=== PATIENT | female | born 1975 | race Caucasian/White ===

== ENCOUNTER 2018-11-29 19:17 | Emergency (ER) | payer MEDICAID ==
[~2018-11-29] VITALS: Ht 175.3 cm; Wt 68.0 kg
[~2018-11-29 19:17] MED LIST: ZYPREXA5 MG ORAL
[2018-11-29 19:20] VITALS: BP 142/76
[2018-11-29 19:47] LABS: BASOPHILS % (AUTO) 0.8 % (0.0-2.0); EOSINOPHILS % (AUTO) 1.3 % (0.0-3.0); HEMATOCRIT 42.4 % (37.0-47.0); HEMOGLOBIN 13.7 G/DL (12.0-16.0); LYMPHOCYTES % (AUTO) 21.1 % (20.0-45.0); MEAN CORPUSCULAR VOLUME 92 FL (80-99); MONOCYTES % (AUTO) 6.8 % (1.0-10.0); NEUTROPHILS % (AUTO) 70.1 % (45.0-75.0); PLATELET COUNT 331 K/UL (150-450); RED BLOOD COUNT 4.59 M/UL (4.20-5.40); RED CELL DISTRIBUTION WIDTH 12.5 % (11.6-14.8)
--- NOTE | 2018-11-29 19:48 | Emergency Room Report ---
History of Present Illness General Chief Complaint: Behavioral Complaint Source: Patient (Abe Jones) Present Illness HPI 43-year-old female patient presents the ER brought in by ambulance from [facility] for hearing voices and thoughts of self-harm. Patient reports thoughts of hurting herself at this time. States that she would slit her wrists. Denies fever, chest pain or shortness of breath, abdominal pain. Reports hearing voices during this time. Reports history of schizophrenia, states that she normally takes medication however has been off it for "a while" . States that she has been taking Zyprexa since she was 8 years old. Denies previous suicidal attempts. Denies drinking, drugs, smoking. Denies other aggravating or relieving factors. Patient has not other complaints at this time. Patient is not on a 5150 hold. (Abe Jones) Allergies: Coded Allergies: No Known Allergies (Unverified , 11/29/18) Patient History Past Medical History: see triage record Last Menstrual Period: n/a Now: No Reviewed Nursing Documentation: PMH: Agreed; PSxH: Agreed (Abe Jones) Nursing Documentation-PMH History Of Psychiatric Problem: Yes - schizoaffective (Abe Jones) Review of Systems All Other Systems: negative except mentioned in HPI (Abe Jones) Physical Exam Vital Signs Date Time Temp Pulse Resp B/P (MAP) Pulse Ox O2 Delivery O2 Flow Rate FiO2 11/29/18 19:07 97.2 86 18 142/76 98 Room Air Sp02 EP Interpretation: reviewed, normal General Appearance: well appearing, no apparent distress, alert, GCS 15, non- toxic Head: normocephalic, atraumatic Eyes: bilateral eye normal inspection, bilateral eye PERRL ENT: hearing grossly normal, normal pharynx, no angioedema, normal voice, uvula midline, moist mucus membranes Neck: full range of motion Respiratory: lungs clear, normal breath sounds, no rhonchi, no respiratory distress, no accessory muscle use, no wheezing, speaking full sentences Cardiovascular #1: regular rate, rhythm, no edema Gastrointestinal: non tender, soft, no mass, non-distended, no guarding, no rebound Genitourinary: no CVA tenderness Musculoskeletal: back normal, digits/nails normal, gait/station normal, normal range of motion, non-tender Neurologic: alert, oriented x3, responsive, motor strength/tone normal, sensory intact Psychiatric: mood/affect normal Skin: no rash Lymphatic: no adenopathy (Abe Jones) Medical Decision Making PA Attestation Dr. Martinez is my supervising Physician whom patient management has been discussed with. (Abe Jones) Diagnostic Impression: Primary Impression: Behavioral disorder Additional Impressions: Suicidal ideations Psychosis Qualified Codes: F20.3 - Undifferentiated schizophrenia ER Course Pt. presents to the ED c/o hearing voices, thoughts of self harm, hx of schizophrenia. Ddx considered but are not limited to anxiety, depression, drug use, alcohol use , behavioral disorder. Vital signs: are WNL, pt. is afebrile Ordered labs, urine drug screen, serum alcohol. ER COURSE: Will provide patient with Haldol and Benadryl for hearing voices symptoms. Ordered sitter for patient. CBC shows mild elevation WBCs without left shift, patient afebrile, low suspicion for bacterial etiology of symptoms, does not require antibiotics at this time. CMP unremarkable, LFTs and electrolytes within normal limits, mild depression glucose, will provide patient with food in the ER UA shows negative nitrites, patient asymptomatic, does not require treatment for UTI Urine drug screen negative, serum alcohol not elevated, acetaminophen and salicylate levels within normal limits. Patient medically cleared for transfer to psychiatric facility. Patient resting comfortably in no acute distress, nontoxic appearing. Patient transferred to Dr. Murillo. - Please note that this Emergency Department Report was dictated using [employer] [facility] [employer] pt technology software, occasionally this can lead to erroneous entry secondary to interpretation by the dictation equipment. Tam (Abe Jones) ER Course She signed out to me. She has a history of schizophrenia but not taking her psychiatric medication. She presents with chief complaint of psychosis and arthritis hallucination. She has suicidal mediation. Because of this, I felt that she is a danger to self I place on a 5150 hold. She is medically clear. She will be transferred to a psychiatric facility. (Ramon Murillo MD) Last Vital Signs Date Time Temp Pulse Resp B/P (MAP) Pulse Ox O2 Delivery O2 Flow Rate FiO2 11/29/18 19:07 97.2 86 18 142/76 98 Room Air (Abe Jones) Status: improved (Ramon Murillo MD) Disposition: XFER TO PSYCH HOSP/UNIT Condition: Stable Abe Jones Nov 29, 2018 19:48 Ramon Murillo MD Nov 30, 2018 02:56
[2018-11-29 19:59] LABS: ANION GAP 10 mmol/L (5-15); BLOOD UREA NITROGEN 16 mg/dL (7-18); CALCIUM 8.8 MG/DL (8.5-10.1); CARBON DIOXIDE 28 MMOL/L (21-32); CHLORIDE 104 MMOL/L (98-107); POTASSIUM 3.6 MMOL/L (3.5-5.1); SODIUM 142 MMOL/L (136-145)
[2018-11-29 20:04] LABS: ALANINE AMINOTRANSFERASE 21 U/L (12-78); ALBUMIN 3.1 G/DL (3.4-5.0); ALBUMIN/GLOBULIN RATIO 0.8 (1.0-2.7); ALKALINE PHOSPHATASE 86 U/L (46-116); ASPARTATE AMINO TRANSFERASE 10 U/L (15-37); BILIRUBIN,TOTAL 0.3 MG/DL (0.2-1.0)
[2018-11-29 20:26] LABS: APPEARANCE,URINE CLEAR; BILIRUBIN, URINE NEGATIVE (NEGATIVE); COLOR,URINE PALE YELLOW; GLUCOSE, URINE (UA) NEGATIVE (NEGATIVE); KETONES,URINE 1+ (NEGATIVE); LEUKOCYTE ESTERASE ,URINE 1+ (NEGATIVE); NITRITE,URINE NEGATIVE (NEGATIVE); PH,URINE 6 (4.5-8.0); PROTEIN,URINE NEGATIVE (NEGATIVE); UROBILINOGEN,URINE NORMAL MG/DL (0.0-1.0)
[2018-11-29 21:12] VITALS: BP 140/72
[2018-11-29 23:39] VITALS: BP 131/69
[2018-11-30 01:23] VITALS: BP 124/78
[2018-11-30 03:32] VITALS: BP 129/76
[2018-11-30 05:30] VITALS: BP 125/69
[2018-11-30 07:45] VITALS: BP 120/77
[2018-11-30 08:18] VITALS: BP 89/54
== END 2018-11-30 08:19 ==
LOC: EDBD 19:17 → EMR 21:42
DX: F91.9 Conduct disorder, unspecified (principal); R45.851 Suicidal ideations; F29 Unspecified psychosis not due to a substance or known physiological condition; F25.9 Schizoaffective disorder, unspecified
CPT/HCPCS: 36415; 80053; 80307; 80329; 81003; 81025; 85025; 96360; 99285

== ENCOUNTER 2018-12-12 12:47 | Emergency (ER) | payer MEDICAID ==
[~2018-12-12] VITALS: Ht 175.3 cm; Wt 86.2 kg
[~2018-12-12 12:47] MED LIST changes: +ZYPREXA2.5 MG ORAL
[2018-12-12 13:33] VITALS: BP 142/78
--- NOTE | 2018-12-12 13:38 | NUR ---
ED Nurse Note: Kb Segura, EMT at bedside.
[2018-12-12 13:39] LABS: BASOPHILS % (AUTO) 0.7 % (0.0-2.0); EOSINOPHILS % (AUTO) 0.1 % (0.0-3.0); HEMOGLOBIN 14.5 G/DL (12.0-16.0); LYMPHOCYTES % (AUTO) 13.4 % (20.0-45.0); MEAN CORPUSCULAR VOLUME 91 FL (80-99); MONOCYTES % (AUTO) 5.5 % (1.0-10.0); NEUTROPHILS % (AUTO) 80.3 % (45.0-75.0); PLATELET COUNT 339 K/UL (150-450); RED BLOOD COUNT 4.93 M/UL (4.20-5.40); RED CELL DISTRIBUTION WIDTH 12.3 % (11.6-14.8); WHITE BLOOD COUNT 15.3 K/UL (4.8-10.8)
[2018-12-12 13:53] LABS: ANION GAP 11 mmol/L (5-15); BLOOD UREA NITROGEN 10 mg/dL (7-18); CALCIUM 8.7 MG/DL (8.5-10.1); CARBON DIOXIDE 24 MMOL/L (21-32); CHLORIDE 103 MMOL/L (98-107); CREATININE 1.1 MG/DL (0.55-1.30); SODIUM 138 MMOL/L (136-145)
[2018-12-12 13:58] LABS: ALANINE AMINOTRANSFERASE 38 U/L (12-78); ALBUMIN 3.3 G/DL (3.4-5.0); ALBUMIN/GLOBULIN RATIO 0.8 (1.0-2.7); ALKALINE PHOSPHATASE 83 U/L (46-116); ASPARTATE AMINO TRANSFERASE 23 U/L (15-37); BILIRUBIN,TOTAL 0.2 MG/DL (0.2-1.0)
--- NOTE | 2018-12-12 14:07 | NUR ---
ED Nurse Note:blood and urine was sent to labs, pt. is compliant with treatment, VSS, was provided with food
--- NOTE | 2018-12-12 14:26 | NUR ---
ED Nurse Note:personal belongings placed in locker #1
[2018-12-12 14:41] LABS: APPEARANCE,URINE SLIGHTLY CLOUDY; BILIRUBIN, URINE NEGATIVE (NEGATIVE); COLOR,URINE PALE YELLOW; GLUCOSE, URINE (UA) NEGATIVE (NEGATIVE); KETONES,URINE NEGATIVE (NEGATIVE); LEUKOCYTE ESTERASE ,URINE 2+ (NEGATIVE); NITRITE,URINE NEGATIVE (NEGATIVE); PH,URINE 6.5 (4.5-8.0); PROTEIN,URINE NEGATIVE (NEGATIVE); UROBILINOGEN,URINE NORMAL MG/DL (0.0-1.0)
--- NOTE | 2018-12-12 15:25 | Emergency Room Report ---
History of Present Illness General Chief Complaint: Suicidal Source: Medical Record (Rhonda Paz) Present Illness HPI 43-year-old female presents to the emergency department brought by PD on a 5150 hold for suicidal ideations. Patient reports that she is having auditory hallucinations of voices that are instructing her to cut her wrists and that she is considering doing so. Patient denies previous suicide attempt she states that one other time she did think about cutting her wrists in the past however she never attempted it. Patient states she has a history of schizophrenia and was taking Zyprexa for her symptoms for many years. Patient states that she has been off of her medication for approximately one month due to inability to obtain her medications. She denies depression, helga, history of TBI, heart or liver disease. Patient does report to previously some cocaine and states that has been several months since using. Patient denies any aggravating or relieving factors at this time she states that she merely wants to be "stabilized ". Denies chest pain, shortness of breath, abdominal pain/ tenderness, sudden severe headache, nausea, vomiting, fevers, chills, musculoskeletal symptoms or rashes. (Rhonda Paz) Allergies: Coded Allergies: No Known Allergies (Unverified , 11/29/18) Patient History Past Medical History: see triage record, psych hx Past Surgical History: none Pertinent Family History: none Social History: Reports: drug use - Cocaine Now: No Reviewed Nursing Documentation: PMH: Agreed; PSxH: Agreed (Rhonda Paz) Nursing Documentation-PMH Past Medical History: No History, Except For History Of Psychiatric Problem: Yes - Schizophrenia paranoid, seizure (Rhonda Paz) Review of Systems All Other Systems: negative except mentioned in HPI (Rhonda Paz) Physical Exam Vital Signs Date Time Temp Pulse Resp B/P (MAP) Pulse Ox O2 Delivery O2 Flow Rate FiO2 12/12/18 12:42 97.5 100 18 142/78 99 Room Air Sp02 EP Interpretation: reviewed, normal General Appearance: no apparent distress, alert, GCS 15, non-toxic Head: normocephalic, atraumatic Eyes: bilateral eye normal inspection, bilateral eye PERRL ENT: hearing grossly normal, normal voice Neck: full range of motion Respiratory: lungs clear, normal breath sounds, speaking full sentences Cardiovascular #1: regular rate, rhythm Gastrointestinal: normal bowel sounds, non tender, soft Rectal: deferred Genitourinary: normal inspection, no CVA tenderness Musculoskeletal: back normal, gait/station normal, normal range of motion, non- tender Neurologic: alert, oriented x3, responsive, motor strength/tone normal, sensory intact, normal gait, speech normal, grossly normal Psychiatric: memory normal, mood/affect normal, other - Pt. reporting auditory hallucinations which are encouraging her to cut her wrists. Skin: normal color, no rash, warm/dry, well hydrated Lymphatic: no adenopathy (Rhonda Paz) Medical Decision Making PA Attestation Dr. torres is my supervising Physician whom patient management has been discussed with. (Rhonda Paz) Diagnostic Impression: Primary Impression: Auditory hallucinations Additional Impression: Suicidal ideation ER Course 43-year-old female presents to the emergency department brought by PD on a 5150 hold for suicidal ideations. Patient reports that she is having auditory hallucinations of voices that are instructing her to cut her wrists and that she is considering doing so. Patient denies previous suicide attempt she states that one other time she did think about cutting her wrists in the past however she never attempted it. Patient states she has a history of schizophrenia and was taking Zyprexa for her symptoms for many years. Patient states that she has been off of her medication for approximately one month due to inability to obtain her medications. She denies depression, helga, history of TBI, heart or liver disease. Patient does report to previously some cocaine and states that has been several months since using. Patient denies any aggravating or relieving factors at this time she states that she merely wants to be "stabilized ". Denies chest pain, shortness of breath, abdominal pain/ tenderness, sudden severe headache, nausea, vomiting, fevers, chills, musculoskeletal symptoms or rashes. Pt has flat affect. non-aggressive, normal though process, and normal memory. Ddx considered but are not limited to OD, SI/HI, psychosis, UTI, intoxication Vital signs: are WNL, pt. is afebrile H&PE are most consistent with behavioral/mental health issue ORDERS: -CBC, CMP: WBC 15 -UA: negative for infection/ unremarkable see results attached. -UDS: Negative -Salicylates and Acetaminophen -WNL -Serum ETOH - No evidence of acute intoxication ED INTERVENTIONS: - Zyprexa PO Consulted Dr. Kelley if pt. is still here in the am she will evaluate. DISPOSITION: patient is medically cleared and will be under ED observation awaiting psychiatric Placement or Eval. for final disposition. Labs Test 12/12/18 13:20 White Blood Count 15.3 K/UL (4.8-10.8) Red Blood Count 4.93 M/UL (4.20-5.40) Hemoglobin 14.5 G/DL (12.0-16.0) Hematocrit 45.0 % (37.0-47.0) Mean Corpuscular Volume 91 FL (80-99) Mean Corpuscular Hemoglobin 29.4 PG (27.0-31.0) Mean Corpuscular Hemoglobin Concent 32.2 G/DL (32.0-36.0) Red Cell Distribution Width 12.3 % (11.6-14.8) Platelet Count 339 K/UL (150-450) Mean Platelet Volume 6.5 FL (6.5-10.1) Neutrophils (%) (Auto) 80.3 % (45.0-75.0) Lymphocytes (%) (Auto) 13.4 % (20.0-45.0) Monocytes (%) (Auto) 5.5 % (1.0-10.0) Eosinophils (%) (Auto) 0.1 % (0.0-3.0) Basophils (%) (Auto) 0.7 % (0.0-2.0) Urine Color Pale yellow Urine Appearance Slightly cloudy Urine pH 6.5 (4.5-8.0) Urine Specific Chancellor 1.010 (1.005-1.035) Urine Protein Negative (NEGATIVE) Urine Glucose (UA) Negative (NEGATIVE) Urine Ketones Negative (NEGATIVE) Urine Blood 1+ (NEGATIVE) Urine Nitrite Negative (NEGATIVE) Urine Bilirubin Negative (NEGATIVE) Urine Urobilinogen Normal MG/DL (0.0-1.0) Urine Leukocyte Esterase 2+ (NEGATIVE) Urine RBC 0-2 /HPF (0 - 2) Urine WBC 2-4 /HPF (0 - 2) Urine Squamous Epithelial Cells Moderate /LPF (NONE/OCC) Urine Bacteria Few /HPF (NONE) Urine HCG, Qualitative Negative (NEGATIVE) Sodium Level 138 MMOL/L (136-145) Potassium Level 4.0 MMOL/L (3.5-5.1) Chloride Level 103 MMOL/L (98-107) Carbon Dioxide Level 24 MMOL/L (21-32) Anion Gap 11 mmol/L (5-15) Blood Urea Nitrogen 10 mg/dL (7-18) Creatinine 1.1 MG/DL (0.55-1.30) Estimat Glomerular Filtration Rate 53.9 mL/min (>60) Glucose Level 114 MG/DL (74-106) Calcium Level 8.7 MG/DL (8.5-10.1) Total Bilirubin 0.2 MG/DL (0.2-1.0) Aspartate Amino Transf (AST/SGOT) 23 U/L (15-37) Alanine Aminotransferase (ALT/SGPT) 38 U/L (12-78) Alkaline Phosphatase 83 U/L (46-116) Total Protein 7.2 G/DL (6.4-8.2) Albumin 3.3 G/DL (3.4-5.0) Globulin 3.9 g/dL Albumin/Globulin Ratio 0.8 (1.0-2.7) Salicylates Level 2.4 ug/mL (2.8-20) Urine Opiates Screen Negative (NEGATIVE) Acetaminophen Level < 2 MCG/ML (10-30) Urine Barbiturates Screen Negative (NEGATIVE) Phencyclidine (PCP) Screen Negative (NEGATIVE) Urine Amphetamines Screen Negative (NEGATIVE) Urine Benzodiazepines Screen Negative (NEGATIVE) Urine Cocaine Screen Negative (NEGATIVE) Urine Marijuana (THC) Screen Negative (NEGATIVE) Serum Alcohol < 3 mg/dL (Rhonda Paz) ER Course Patient signout to me. She was placed on a 5150 because of suicidal thoughts and auditory hallucinations. She was accepted to [facility] psychiatric facility. (Ramon Murillo MD) Last Vital Signs Date Time Temp Pulse Resp B/P (MAP) Pulse Ox O2 Delivery O2 Flow Rate FiO2 12/12/18 13:33 97.5 95 18 142/78 99 Room Air (Rhonda Paz) Disposition: XFER TO PSYCH HOSP/UNIT Condition: Stable Signed Out To: Dr. Murillo (Rhonda Paz) Referrals: NON PHYSICIAN (PCP) Rhonda Paz Dec 12, 2018 15:25 Ramon Murillo MD Dec 13, 2018 05:02
--- NOTE | 2018-12-12 19:30 | NUR ---
ED Nurse Note: RECIEVED PT SITTING ON SIDE OF GURMUNDAY IN ROOM, SITTER AT BEDSIDE, TP IS ON 5150 HOLD, PT IS AWAKE, ALERT AND ORIENTED X 4, PT STATES SHE REMAINS WITH SUICIDAL IDEATIONS AND INTERMITTENT HALLUCINATIONS, STATES VOICES TELL HER TO CUT HER WRIST, PT IS CALM AND COOPERATIVE, GIVEN SANDWICH AND JUICE, WILL CONTINUE TO CLOSELY MONITOR MI WAITING FOR PLACEMENT FOR PSYCHIATRIC CONTINUED CARE.
[2018-12-12 20:00] VITALS: BP 129/67
[2018-12-12 23:00] VITALS: BP 111/54
--- NOTE | 2018-12-12 23:00 | NUR ---
ED Nurse Note: PT SLEEPING IN BED, AROUSES EASILY TO VERBAL STIMULI, REMAINS ON HOLD AND SUICIDAL PRECAUTIONS, NO ATTEMPTS MADE OR ACUTE CHANGES, SITTER NO LONGER AVAILABLE, WILL CONTINUE TO CLOSELY MONITOR.
[2018-12-13 02:00] VITALS: BP 119/61
--- NOTE | 2018-12-13 02:00 | NUR ---
ED Nurse Note: no acute changes or distress noted, pt remains on suicidal precautions and 5150 hold, no attempts made, pt resting quietly in bed, pt has possible transfer plans for [facility], will continue to closely monitor and prepare for transfer.
[2018-12-13 04:45] VITALS: BP 107/72
--- NOTE | 2018-12-13 04:45 | NUR ---
ED Nurse Note: PT BEING TRANSFERRED TO [facility] FOR CONTINUED CARE, PT IS AWAKE, ALERT AND ORIENTED X 4, AMBULATORY WITH STEADY GAIT, PT STATES SHE REMAINS SUICIDAL AND HEARING VOICES, PT IS CALM AND COOPERATIVE, REPORT, ALL PT BELONGINGS AND TRANSFER FORMS COMPLETED AND GIVEN TO YARDAGE ESTIMATOR BRIAN, [facility][id number], V/S STABLE, NAD NOTED DURING PT TRANSPORT VIA [facility]UL[facility].
[2018-12-13 05:05] VITALS: BP 107/72
== END 2018-12-13 05:07 ==
LOC: EDBD 12:47 → EMR 13:12
DX: R44.0 Auditory hallucinations (principal); R45.851 Suicidal ideations; F20.9 Schizophrenia, unspecified
CPT/HCPCS: 36415; 80053; 80307; 80329; 81003; 81025; 85025; 99285